=== PATIENT | female | born 1985 | race Caucasian/White ===

== ENCOUNTER 2020-02-26 06:22 | Emergency (ER) | payer OTHER ==
[~2020-02-26] VITALS: Ht 144.8 cm; Wt 46.7 kg
[~2020-02-26 06:22] MED LIST: ACYCLOVIR200 MG PO; ALTAVERA1 EACH PO; CIPROFLOXACIN500 MG PO; DOXYCYCLINE HY100 MG PO; EPIN0.3P IM; FLONASE ALLERG9.9 ML NAS; HYDROCORTISONE5 MG PO; LEVOTHYROXINE125 MCG PO; SLOW-MAG71.5 MG PO; SOMATROPIN SUB-Q; TIROSINT88 MCG PO; ZITHROMAX250 MG PO
[2020-02-26] MEDS ORDERED: FLAGYL500 MG PO (07:45)
[2020-02-26] MEDS ORDERED: CEFUROXIME500 MG PO (07:45)
[2020-02-27] MEDS ORDERED: CLINDAMYCIN HC300 MG PO (20:53)
[2020-02-27] MEDS ORDERED: NORCO 5-325 TA1 EACH PO (20:53)
== END 2020-02-26 08:57 | disposition home or self-care (01) ==
LOC: ED 06:22
DX: S91.352A Open bite, left foot, initial encounter (principal); W54.0XXA Bitten by dog, initial encounter; Z88.1 Allergy status to other antibiotic agents; Z88.0 Allergy status to penicillin; Z88.8 Allergy status to other drugs, medicaments and biological substances; Z79.899 Other long term (current) drug therapy; Z85.841 Personal history of malignant neoplasm of brain
CPT/HCPCS: 73630; 90471; 90715; 99283-25

== ENCOUNTER 2020-02-27 18:07 | Emergency (ER) | payer OTHER ==
[~2020-02-27] VITALS: Ht 144.8 cm; Wt 46.7 kg
[~2020-02-27 18:07] MED LIST changes: +CEFUROXIME500 MG PO; +FLAGYL500 MG PO
--- OUTSIDE RECORDS SUMMARY | 2020-02-27 18:10 | XMS ---
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 04/10/2018-Current PHONE: [phone] Chelsi has no Care Guidelines for this patient. Mercedes VISIT COUNT (12 MO.) 2 [facility] TOTAL 2 NOTE: Visits indicate total known visits. ED/UCC VISIT TRACKING (12 MO.) 02/27/2020 18:08 [facility] [place] TYPE: Emergency COMPLAINT: - FEVER, L FOOT SWELLING 02/26/2020 06:23 [facility] [place] TYPE: Emergency COMPLAINT: - ANIMAL BITE INPATIENT VISIT TRACKING (12 MO.) No inpatient visits to display in this time frame [email or web address]
[2020-02-27] MEDS ORDERED: CLINDAMYCIN HC300 MG PO (20:53)
[2020-02-27] MEDS ORDERED: NORCO 5-325 TA1 EACH PO (20:53)
== END 2020-02-27 21:09 | disposition home or self-care (01) ==
LOC: ED 18:07
DX: S91.352D Open bite, left foot, subsequent encounter (principal); S91.052D Open bite, left ankle, subsequent encounter; L03.116 Cellulitis of left lower limb; W54.0XXD Bitten by dog, subsequent encounter; Z85.841 Personal history of malignant neoplasm of brain; Z88.1 Allergy status to other antibiotic agents; Z88.0 Allergy status to penicillin; Z88.8 Allergy status to other drugs, medicaments and biological substances; Z79.899 Other long term (current) drug therapy
CPT/HCPCS: 73610; 80053; 83605; 85025; 96374; 96375; 99283-25; J1170; J2405; J3490

== ENCOUNTER 2023-09-08 08:40 | Emergency (ER) | payer MEDICARE, OTHER ==
[~2023-09-08] VITALS: Ht 144.8 cm; Wt 46.2 kg
[~2023-09-08 08:40] MED LIST changes: +CLINDAMYCIN HC300 MG PO; +EPIPEN 2-P0.3 MG/0.3 IM; +NORCO 5-325 TA1 EACH PO
[2023-09-08] MEDS ORDERED: K-TAB ER20 MEQ PO (09:07)
[2023-09-08] MEDS ORDERED: VITAFOL-OB+DHA1 EACH PO (09:07)
[2023-09-08] MEDS ORDERED: MAGNESIUM100 MG PO (09:07)
[2023-09-08 09:22] LABS: BILIRUBIN, URINE NEGATIVE (negative); BLOOD/HGB, URINE LARGE (Negative); KETONE, URINE NEGATIVE (Negative); LEUK ESTERASE, URINE SMALL (negative); NITRITE, URINE NEGATIVE (negative); PH, URINE 6.5 (5-7)
[2023-09-08 09:31] LABS: BACTERIA, URINE RARE /hpf (negative); CASTS, URINE NONE SEEN \\lpf; COLLECTION TYPE, URINE CLEAN CATCH; CRYSTALS, URINE NONE SEEN (0-1+); EPITHELIAL CELLS, URINE SQUAMOUS 2+ /lpf (0-1+); RED BLOOD CELLS, URINE 41-50 /hpf (0-5); REFLEX CULTURE, URINE No (No)
[2023-09-08 10:13] LABS: BASOPHILS 0.3 % (0-2); EOSINOPHILS 0.2 % (0-6); HEMATOCRIT 31.2 % (35.0-50.0); HEMOGLOBIN 10.5 g/dL (12.0-18.0); LYMPHOCYTES 9.6 % (24-44); MCH 29.6 (27-36); MCHC 33.8 g/dl (30-36); MCV 87.6 fl (81-99); MONOCYTES 4.8 % (0-12); NEUTROPHILS 85.1 % (39-80); PLATELET COUNT 244 K/uL (140-440); RBC 3.56 M/ul (4.3-5.7); RDW 14.1 (10.5-15.0)
[2023-09-08 10:39] LABS: ABO A
[2023-09-08 10:40] LABS: RH NEGATIVE
[2023-09-08] MEDS ORDERED: ACETAMINOPHEN 325 MG TAB PO ONE (10:45)
[2023-09-08] MEDS ORDERED: RHO(D) IMMUNE GLOBULIN 1,500 UNIT/2 ML ML IM ONE (11:30)
[2023-09-08 11:31] LABS: RHIG VIAL 1 RG22K01-M
[2023-09-08 12:37] LABS: AMNISURE ROM TEST POSITIVE
[2023-09-08 13:03] VITALS: BP 125/71
== END 2023-09-08 13:03 | disposition home or self-care (01) ==
LOC: ED 08:40
PROVIDERS: Emergency Medicine
DX: O20.0 Threatened abortion (principal); O26.892 Other specified pregnancy related conditions, second trimester; O34.12 Maternal care for benign tumor of corpus uteri, second trimester; D25.9 Leiomyoma of uterus, unspecified; Z3A.15 15 weeks gestation of pregnancy; Z88.8 Allergy status to other drugs, medicaments and biological substances; Z88.0 Allergy status to penicillin; Z88.1 Allergy status to other antibiotic agents; Z79.899 Other long term (current) drug therapy
CPT/HCPCS: 36415; 76815; 81001; 84112; 85025; 86900; 86901; 96372; 99284-25; A9270; J2790

== ENCOUNTER 2023-09-12 17:57 | Emergency (ER) | payer MEDICARE, OTHER ==
[~2023-09-12] VITALS: Ht 144.8 cm; Wt 46.8 kg
[~2023-09-12 17:57] MED LIST changes: +K-TAB ER20 MEQ PO; +MAGNESIUM100 MG PO; +VITAFOL-OB+DHA1 EACH PO
--- OUTSIDE RECORDS SUMMARY | 2023-09-12 18:00 | XMS ---
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 E.DMin VISIT COUNT (12 MO.) 2 [facility]AT[facility] Richardson TOTAL 2 NOTE: Visits indicate total known visits. ED/UCC VISIT TRACKING (12 MO.) 09/12/2023 17:57 [facility] [place] TYPE: Emergency COMPLAINT: - FEVER 09/08/2023 08:42 [facility] [place] TYPE: Emergency COMPLAINT: - VAGINAL CRAMPING/BLEEDING, 16 WKS PG INPATIENT VISIT TRACKING (12 MO.) No inpatient visits to display in this time frame [email or web address]
[2023-09-12] MEDS ORDERED: LACTATED RINGER'S 1,000 ML IV ONE (20:00)
[2023-09-12 20:15] LABS: ALBUMIN 2.9 g/dL (3.4-5.0); ALBUMIN/GLOBULIN RATIO 0.63 (1.1-2.4); ANION GAP 12.6 (7-21); BILIRUBIN, TOTAL 0.1 ng/dL (0.2-1.0); BUN/CREATININE RATIO 15.94 (6.0-28.6); CALCIUM 9.6 mg/dL (8.5-10.1); CREATININE, SERUM 0.69 mg/dL (0.55-1.02); POTASSIUM 3.6 mmol/L (3.5-5.1); PROTEIN, TOTAL 7.5 g/dL (6.4-8.2)
[2023-09-12] MEDS ORDERED: HYDROmorphone HCL 1 MG/ML SYR IV ONE (20:15)
[2023-09-12] MEDS ORDERED: ACETAMINOPHEN 500 MG TAB PO ONE (20:15)
[2023-09-12] MEDS ORDERED: ondansetron HCL 4 MG/2 ML VIAL IV ONE (20:15)
[2023-09-12 20:17] LABS: BASOPHILS 0.5 % (0-2); EOSINOPHILS 0.4 % (0-6); HEMATOCRIT 29.8 % (35.0-50.0); LYMPHOCYTES 8.9 % (24-44); MCH 29.3 (27-36); MCHC 33.4 g/dl (30-36); MCV 87.6 fl (81-99); MONOCYTES 5.9 % (0-12); NEUTROPHILS 84.3 % (39-80); PLATELET COUNT 268 K/uL (140-440); RDW 13.4 (10.5-15.0)
[2023-09-12] MEDS ORDERED: CEFEPIME HCL/D5W 1 GM/100 ML PIGGYBACK IV ONE (20:30)
[2023-09-12 20:36] LABS: LACTIC ACID, BLOOD 1.2 mmol/L (0.4-2.0)
[2023-09-12 20:54] LABS: INFLUENZA B NAA NEGATIVE (NEGATIVE); RESPIRATORY SYNCYTIAL VIR NAA NEGATIVE (NEGATIVE)
[2023-09-12 22:32] LABS: BILIRUBIN, URINE NEGATIVE (negative); BLOOD/HGB, URINE LARGE (Negative); KETONE, URINE NEGATIVE (Negative); LEUK ESTERASE, URINE NEGATIVE (negative); NITRITE, URINE NEGATIVE (negative); PH, URINE 6.5 (5-7)
[2023-09-12 22:37] LABS: CRYSTALS, URINE NONE SEEN (0-1+); EPITHELIAL CELLS, URINE SQUAMOUS 2+ /lpf (0-1+); RED BLOOD CELLS, URINE >50 /hpf (0-5)
[2023-09-12 22:38] LABS: BACTERIA, URINE 1+ /hpf (negative); CASTS, URINE NONE SEEN \\lpf; REFLEX CULTURE, URINE No (No)
[2023-09-12] MEDS ORDERED: metroNIDAZOLE/SODIUM CHLORIDE 100 ML IV ONE (23:01)
[2023-09-13] MEDS ORDERED: ZITHROMAX250 MG PO (00:43)
[2023-09-13] MEDS ORDERED: AZITHROMYCIN 250 MG TAB PO ONE (00:45)
[2023-09-13 00:52] VITALS: BP 114/66
--- NOTE | 2023-09-13 08:17 | EKG ---
[facility] [address] [facility] [place] [address] Signed Sinus tachycardia Otherwise normal ECG No previous ECGs available Confirmed by Manuel Garcia MD () on 09/13/2023 8:18:13 AM Electronically Signed By: MANUEL GARCIA MD 09/13/23 0817 PATIENT NAME: FELIX ACEVEDO Electrocardiogram DATE OF : 87 PHYSICIAN: MANUEL GARCIA MD REPORT #: [id number] REPORT IS CONFIDENTIAL AND NOT TO BE RELEASED WITHOUT AUTHORIZATION
== END 2023-09-13 01:01 | disposition home or self-care (01) ==
LOC: ED 17:57
PROVIDERS: Internal Medicine
DX: N71.9 Inflammatory disease of uterus, unspecified (principal); E27.40 Unspecified adrenocortical insufficiency; Z88.1 Allergy status to other antibiotic agents; Z88.0 Allergy status to penicillin; Z88.8 Allergy status to other drugs, medicaments and biological substances; Z79.890 Hormone replacement therapy; Z79.899 Other long term (current) drug therapy
CPT/HCPCS: 36415; 71045; 74176; 80053; 81001; 83605; 84702; 84703; 85025; 87502; A9270; J0692; J1170; J2405; J7121; U0002

== ENCOUNTER 2024-08-16 20:08 | Emergency (ER) | payer MEDICARE, OTHER ==
[~2024-08-16] VITALS: Ht 144.8 cm; Wt 43.0 kg
[2024-08-16] MEDS ORDERED: OMNITROPE SUB-Q (21:02)
[2024-08-16 22:18] LABS: BASOPHILS 0.5 % (0-2); EOSINOPHILS 0.3 % (0-6); HEMATOCRIT 32.4 % (35.0-50.0); HEMOGLOBIN 10.8 g/dL (12.0-18.0); MCH 28.2 (27-36); MCHC 33.4 g/dl (30-36); MCV 84.4 fl (81-99); MONOCYTES 5.6 % (0-12); NEUTROPHILS 80.6 % (39-80); PLATELET COUNT 272 K/uL (140-440); RBC 3.84 M/ul (4.3-5.7); RDW 13.8 (10.5-15.0)
[2024-08-16 22:20] LABS: ALBUMIN 3.5 g/dL (3.4-5.0); ALBUMIN/GLOBULIN RATIO 0.83 (1.1-2.4); ALKALINE PHOSPHATASE 101 U/L (46-116); ALT (SGPT) 25 U/L (14-59); ANION GAP 13.1 (7-21); AST (SGOT) 20 U/L (15-37); BILIRUBIN, TOTAL 0.2 mg/dL (0.2-1.0); BUN/CREATININE RATIO 21.83 (6.0-28.6); CALCIUM 8.6 mg/dL (8.5-10.1); CARBON DIOXIDE 25 mmol/L (21-32); CHLORIDE 101 mmol/L (98-107); CREATININE, SERUM 0.87 mg/dL (0.55-1.02); GLOMERULAR FILTRATION RATE,EST 87 mL/min (>60); POTASSIUM 3.1 mmol/L (3.5-5.1); PROTEIN, TOTAL 7.7 g/dL (6.4-8.2); UREA NITROGEN 19 mg/dL (7-18)
[2024-08-16] MEDS ORDERED: AZITHROMYCIN 250 MG HOME.PACK PO ONE (22:45)
[2024-08-16] MEDS ORDERED: NEOMYCIN/POLYMYXIN/HYDROCORT 10 ML HOME.PACK OTIC ONE (22:45)
[2024-08-16 22:59] VITALS: BP 127/73
== END 2024-08-16 23:05 | disposition home or self-care (01) ==
LOC: ED 20:08
PROVIDERS: Emergency Medicine
DX: J20.9 Acute bronchitis, unspecified (principal); H60.91 Unspecified otitis externa, right ear; Z79.899 Other long term (current) drug therapy; Z88.1 Allergy status to other antibiotic agents; Z88.0 Allergy status to penicillin; Z91.040 Latex allergy status
CPT/HCPCS: 36415; 71045; 80053; 84484; 85025; 85379; 99285-25